=== PATIENT | female | born 1955 | race Caucasian/White ===

== ENCOUNTER 2019-02-03 11:24 | Emergency (ER) | payer OTHER ==
[2019-02-03 11:43] VITALS: BP 192/81; PULSE 74; TEMP 98.4; BMI 32.3
--- NOTE | 2019-02-03 13:08 | PDOC ---
History of Present Illness - General Chief Complaint: Pain, Acute Stated Complaint: BACK PAIN Time Seen by Provider: 02/03/19 12:36 History Source: Patient Exam Limitations: No Limitations - History of Present Illness Initial Comments: 02/03/19 13:06 63 y/o F with PMHx of COPD (not on Home O2), HTN, Hypothyroidism presents with Back pain. Patient says she woke with back pain about 2 weeks ago. It has been progressive and aas a result she has been unable to participate in pulmonary rehab. Since initial onset, she has tried rest, Naproxen and heat which has helped minimally. This past Sunday, her pain worsened without any associated trigger. The pain is located over the right L2, 8/10 burning pain that is tender to palpation, worse with movement, without radiation. No associate numbness or tingling. No loss of bowel or bladder control. The pain improves with pressure. No recent medication changes, recent travel or sick contacts. Denies any associated fevers, chills, chest pain, SOB, nausea, vomiting, diarrhea, constipation, Dysuria. Past History - Travel Traveled outside of the country in the last 30 days: No Close contact w/someone who was outside of country & ill: No - Past Medical History Allergies/Adverse Reactions: Allergies Allergy/AdvReac Type Severity Reaction Status Date / Time No Known Allergies Allergy Verified 02/03/19 11:43 Home Medications: Ambulatory Orders Cyclobenzaprine HCl [Flexeril 10 mg] 10 mg PO BID PRN #15 tablet 02/03/19 Losartan/Hydrochlorothiazide [Losartan-Hctz 100-25 mg Tab] 1 each PO DAILY 02/03 Anemia: No Asthma: No Cancer: No Cardiac Disorders: No Hx Myocardial Infarction: No CVA: No COPD: Yes (Not on Home O2) CHF: No DVT: No Dementia: No Diabetes: No GI Disorders: No HTN: Yes Hypercholesterolemia: No HIV: No Kidney Stones: No Liver Disease: No Psychiatric Problems: No Seizures: No Thyroid Disease: Yes (Hypothyroidism) Lung CA: No - Surgical History Abdominal Surgery: No Appendectomy: No Cardiac Surgery: No Cholecystectomy: No Gastric Stapling: No GI Surgery: No Lung Surgery: No Neurologic Surgery: No Orthopedic Surgery: No - Family Disease History Family Disease History: Diabetes: Mother, Heart Disease: Mother - Immunization History Immunization Up to Date: No - Suicide/Smoking/Psychosocial Hx Smoking History: Former smoker (Quit 4 years ago, Started age 14, 1/2 ppd prior) Have you smoked in the past 12 months: No Information on smoking cessation initiated: No Hx Alcohol Use: No Drug/Substance Use Hx: No Review of Systems - Review of Systems Constitutional: No: Chills, Fever, Night Sweats Respiratory: No: Shortness of Breath, Wheezing Cardiac (ROS): No: Chest Pain, Edema ABD/GI: No: Constipated, Diarrhea, Nausea, Vomiting : No: Dysuria, Hematuria Musculoskeletal: Yes: Back Pain. No: Muscle Weakness Neurological: No: Numbness, Tingling *Physical Exam - Vital Signs Last Vital Signs Temp Pulse Resp BP Pulse Ox 98.4 F 74 16 192/81 H 98 02/03/19 11:39 02/03/19 11:39 02/03/19 11:39 02/03/19 11:39 02/03/19 11:39 - Physical Exam HEENT: positive: EOMI, CONRAD Neck: positive: Supple Respiratory/Chest: positive: Normal Breath Sounds. negative: Crackles, Rales, Wheezing Cardiovascular: positive: Regular Rhythm, Regular Rate, S1, S2. negative: Edema , JVD Gastrointestinal/Abdominal: positive: Normal Bowel Sounds, Soft. negative: Guarding, Rebound, Tenderness Musculoskeletal: positive: Other (Right L2 Tenderness to palpation, Negative straight leg raise). 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 Pain likely musculoskelatal. Lack neurological sx's including numbness, tingling, loss of bowel/bladder control. Denies any recent unintentional weight loss. Will give Toradol 30mg IM, Check UA and L-Spine Xray. BP elevated however patient did not take morning meds. She will take them now and will reassess. 02/03/19 16:38 L-Spine Xray: Since 01/29/2007, there remains straightening of the lumbar spine. Moderate degenerative disc disease at L5-S1 level. Mild anterior spondylosis at L4 and L5 level. No paraspinal soft tissue no mild to seen. Calcification of the abdominal aorta is present. Moderate amount of fecal residue in the ascending colon suggestive of constipation 02/03/19 17:50 Urine Test Results Urine Color Yellow 02/03/19 16:52 Urine Appearance Clear 02/03/19 16:52 Urine pH 6.5 (5.0-8.0) 02/03/19 16:52 Ur Specific [employer] 1.012 (1.010-1.035) 02/03/19 16:52 Urine Protein Negative (NEGATIVE) 02/03/19 16:52 Urine Glucose (UA) Negative (NEGATIVE) 02/03/19 16:52 Urine Ketones Negative (NEGATIVE) 02/03/19 16:52 Urine Blood Negative (NEGATIVE) 02/03/19 16:52 Urine Nitrite Negative (NEGATIVE) 02/03/19 16:52 Urine Bilirubin Negative (NEGATIVE) 02/03/19 16:52 Ur Leukocyte Esterase Trace (NEGATIVE) 02/03/19 16:52 On reevaluation, Patients pain improved mildly with Toradol. L-Spine XRay noted above did not find any acute pathology. Able to ambulate without difficulty, and without focal neuro deficits. Repeat BP 149/68, HR 74. Will Send Flexeril 10mg BID x 3 days to pharmacy and advise PCP follow up if pain does not improve and for tighter BP control. *DC/Admit/Observation/Transfer Diagnosis at time of Disposition: Back pain Qualifiers: Back pain location: low back pain Chronicity: acute Back pain laterality: unspecified Sciatica presence: unspecified whether sciatica present Qualified Code(s): M54.5 - Low back pain - Discharge Dispostion Disposition: HOME Condition at time of disposition: Stable Decision to Admit order: No - Prescriptions Prescriptions: Cyclobenzaprine HCl [Flexeril 10 mg] 10 mg PO BID PRN #15 tablet PRN Reason: Back Pain - Referrals Referrals: Ha Moreira MD [Staff Physician] - - Patient Instructions Printed Discharge Instructions: DI for Low Back Pain Additional Instructions: You presented to the ER with back pain. Imaging did not reveal any acute pathology. Please follow up with your PCP--Please call and make an appointment, Your work up is not complete until you do so. You are being discharged on Flexeril 10mg Twice a day for 3 days. You can also use Tylenol and Alternated with Motrin to control the pain. Continue all your other medications as prescribed. Please return to the ER if you have any signs or symptoms of chest pain, shortness of breath, uncontrollable fever, chills, nausea, vomiting, numbness, tingling, or weakness in any part of your body, changes in vision, or slurred speech. Please return to the ER if symptoms persist, worsen, or new symptoms arise. - Post Discharge Activity
[2019-02-03] MEDS ORDERED: KETOROLAC TROMETHAMINE 30 MG/1 ML VIAL IM ONE (13:21)
[2019-02-03] MEDS ORDERED: KETOROLAC TROMETHAMINE 30 MG/1 ML VIAL ONE (13:26)
--- NOTE | 2019-02-03 13:45 | PDOC ---
Documentation entered by Sherice Eng SCRIBE, acting as scribe for Jose Trujillo MD. Jose Trujillo MD: This documentation has been prepared by the Velasquez alfred Adrianna, SCRIBE, under my direction and personally reviewed by me in its entirety. I confirm that the documentation accurately reflects all work, treatment, procedures, and medical decision making performed by me. Attending Attestation - Resident Resident Name: SanjivBrittany - ED Attending Attestation I have performed the following: I have examined & evaluated the patient, The case was reviewed & discussed with the resident, I agree w/resident's findings & plan, Exceptions are as noted - HPI HPI: The patient is a 63 year old female, with a significant PMH of chronic obstructive pulmonary disease (not on home O2), hypertension, and hypothyroidism , who presents to the emergency department today complaining of low back pain for 2 weeks. It started gradually, and seems worse when she is moving/standing. She notes her back pain is progressively worsening over the past 2 weeks, with minimal relief when using NSAIDs and heat. Patient endorses that the pain is most prominent on right-side of the low back, radiates to her abdomen, and is an 8/10 in nature. She notes the pain is exacerbated with positional changes , and is slightly alleviated when applying pressure to the low back. Denies any numbness or tingling, fever/chills. Patient notes her pain was at its worst 2 days ago, without any specific trigger, which prompted her visit to the ED. The patient denies chest pain, shortness of breath, numbness/tingling/weakness, urinary or bowel incontinence, neck pain, headache and dizziness. Denies nausea, vomit, diarrhea and constipation. Denies dysuria, frequency, urgency and hematuria. Allergies: NKA Past surgical history: None reported Social history: None reported PCP: Does not have one (referred to [facility]) - Physicial Exam PE: 02/03/19 13:42 GENERAL: The patient is awake, alert, and fully oriented, Nontoxic - in no acute distress. HEAD: Normocephalic, atraumatic. EYES: extraocular movements intact, sclera anicteric, conjunctiva clear. ENT: Normal voice, Moist mucous membranes. NECK: Normal range of motion, supple BACK: No focal midline tenderness in the cervical thoracic or lumbar spine, mild tenderness palpation on the right paraspinal musculature, no rashes appreciated LUNGS: Breath sounds equal, clear to auscultation bilaterally. No wheezes, no rhonchi, no rales. HEART: Regular rate and rhythm, normal S1 and S2 without murmur, rub or gallop. ABDOMEN: Soft, nontender, No guarding, no rebound. . No CVA tenderness NEUROLOGICAL: No facial assymetry, normal gait. - Medical Decision Making 02/03/19 13:09 63y F hx of COPD, htn, hypothyroidism presents with gradual onset of back pain 2 weeks ago after waking up, was improving but owrsened on sunday. No numbness/tingling/wekneas,s urinary/bowel incontinence, fever/chills, dysuria, diarrhea Patient's exam unremarkable aside mild paraspinal tenderness. Suspect muscle strain and will treat with Toradol will also obtain x-ray to rule out acute pathology UA to screen for hematuria/kidney stones 02/03/19 15:31 EXAM#: TYPE/EXAM: RESULT: [id number] RAD/SPINE-LUMBAR ONLY Lumbar pain X-ray of the lumbosacral spine, 3 views Since 01/29/2007, there remains straightening of the lumbar spine. Moderate degenerative disc disease at L5-S1 level. Mild anterior spondylosis at L4 and L5 level. No paraspinal soft tissue no mild to seen. Calcification of the abdominal aorta is present. Moderate amount of fecal residue in the ascending colon suggestive of constipation Reported By: Constance Garcias MD 02/03/19 15:28 02/03/19 16:56 xray reviewed will give flexeril supportive care athome I discussed the physical exam findings, ancillary test results and final diagnoses with the patient. I answered all of the patient's questions. The patient was satisfied with the care received and felt comfortable with the discharge plan and treatment plan. The patient will call their primary care physician within 24 hours to arrange follow-up and will return to the Emergency Department with any new, persistent or worsening symptoms.
[2019-02-03 17:23] LABS: EPI CELLS 3.4 /HPF (0-5/HPF); HYALINE CASTS 1 /lpf (0-8); PH,URINE 6.5 (5.0-8.0); URINE APPEARANCE CLEAR; URINE BACTERIA 23.5 /hpf (NEGATIVE); URINE BILIRUBIN NEGATIVE (NEGATIVE); URINE COLOR YELLOW; URINE GLUCOSE (UA) NEGATIVE (NEGATIVE); URINE KETONE NEGATIVE (NEGATIVE); URINE LEUK ESTERASE TRACE (NEGATIVE); URINE NITRITE NEGATIVE (NEGATIVE); URINE PROTEIN NEGATIVE (NEGATIVE); URINE RBC 2 /hpf (0-4); URINE UROBILINOGEN 0.2 mg/dL (0.2-1.0); URINE WBC 7 /hpf (0-5)
== END 2019-02-03 17:57 | disposition home or self-care (01) ==
LOC: JER 11:24
PROC: 3E0233Z Introduction of Anti-inflammatory into Muscle, Percutaneous Approach (ICD-10-PCS; principal; 2019-02-03)
DX: M54.5 Low back pain (principal); I10 Essential (primary) hypertension; E03.9 Hypothyroidism, unspecified; J44.9 Chronic obstructive pulmonary disease, unspecified
CPT/HCPCS: 72100-TC-FY; 81003; 96372; 99282-25

== ENCOUNTER 2020-11-08 17:38 | Emergency (ER) | payer OTHER ==
[2020-11-08 18:09] VITALS: BP 144/81; PULSE 76; TEMP 97.5; BMI 33.3
== END 2020-11-08 19:53 | disposition left against medical advice (07) ==
LOC: JER 17:38
DX: R05 Cough (principal); R06.02 Shortness of breath; R06.09 Other forms of dyspnea
CPT/HCPCS: 99284-25